=== PATIENT | male | born 1975 | race Caucasian/White ===

== ENCOUNTER 2022-10-16 08:23 | Inpatient (IN) | payer SELFPAY ==
[~2022-10-16] VITALS: Ht 193 cm; Wt 117.0 kg
[2022-10-16] VITALS (715 sets, daily range): BP systolic 121–167; BP diastolic 77–97; PULSE 110–138; TEMP 98.4–99; O2SAT 67–100
[~2022-10-16 08:23] MED LIST: NORCO 325 MG-51 TAB PO; PREDNISONE20 MG PO
[2022-10-16 08:39] LABS: MEAN CELL VOLUME 88 fl (80.0-100.0); MEAN CORPUSCULAR HEMOGLOBIN 28 pg (27-31); MEAN CORPUSCULAR HGB CONC 31 g/dl (33.0-37.0); MEAN PLATELET VOLUME 10.2 fl (7.4-10.4); PLATELET COUNT 532 K/mm3 (130-400); RED BLOOD COUNT 5.43 M/mm3 (4.20-5.60); REDCELL DISTRIBUTION WIDTH-CV 13.8 % (11.5-14.5)
[2022-10-16 08:59] LABS: ALANINE AMINOTRANSFERASE 14 U/L (0-55); ALBUMIN 2.6 gm/dL (3.5-5.0); ALKALINE PHOSPHATASE 133 U/L (40-150); AST,SGOT 13 U/L (5-34); BILIRUBIN,TOTAL 0.3 mg/dL (0.2-1.2); BLOOD UREA NITROGEN 46 mg/dL (9-21); CALCIUM 12.3 mg/dL (8.4-10.2); CHLORIDE 101 mmol/L (98-107); CREATININE, serum 1.72 mg/dL (0.72-1.25); LIPASE 91 U/L (8-78); PHOSPHOROUS 6.3 mg/dL (2.3-4.7); POTASSIUM 5.7 mmol/L (3.5-4.5); SODIUM 127 mmol/L (136-145); TOTAL PROTEIN 8.9 gm/dL (6.2-8.1)
[2022-10-16 09:02] LABS: GLUCOSE 575 mg/dL (70-99)
[2022-10-16 09:03] LABS: CARBON DIOXIDE < 5 mmol/L (22-29)
[2022-10-16 09:05] LABS: TROPONIN-I 0.014 ng/mL (0.00-0.033)
[2022-10-16 09:12] LABS: INR 1.2 (0.8-3.0); PROTHROMBIN TIME 13.5 SECONDS (9.7-12.8)
[2022-10-16 09:14] LABS: PARTIAL THROMBOPLASTIN TIME 30.8 SECONDS (26.0-37.0)
[2022-10-16 09:25] LABS: ARTERIAL BLD GAS O2 SATURATION 97.8 % (92-100); ARTERIAL BLD GAS TCO2 CT 2.9; ARTERIAL BLOOD GAS HCO3 2.6 meq/L (22-26); ARTERIAL BLOOD GAS PO2 117.4 mmHg (80-100)
[2022-10-16 09:26] LABS: ARTERIAL BLOOD GAS PCO2 9.1 mmHg (35-45); ARTERIAL BLOOD GAS pH 7.07 (7.35-7.45)
[2022-10-16 09:41] LABS: LYMPHOCYTE 7 % (20.0-51.0); NEUTROPHILS 67 % (42.0-75.2)
[2022-10-16 09:43] LABS: BAND 21 % (0-10); HYPOCHROMIA 1+; PLATELET ESTIMATE INCREASED (NORMAL)
--- NOTE | 2022-10-16 10:10 | NUR ---
SW briefly reviewed pt's ER record upon admission to ICU this morning. Pt's primary complaint was syncope with hyperventilation. Met with pt's mother, Milagros Dimas in the ICU waiting room and she reports pt fell and injured his knee 2 days ago and he has been physically declining ever since. She reports pt stopped taking his medication for diabetes (Metaformin) 1-2 months ago because he didn't have any medical insurance and he could not afford to pay. 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 Mother reports when presented to the ER today, his BSL was "susan high." Mother stated pt is and he was living with his sister, Zakiya Dave in [place], ph# [phone], prior to his admission. Pt has 4 adult sons who reside in [place], and a brother in [place]. Mother reports she has notified the family of pt's hospitalization. Pt purchases his medications thru [employer] and has seen Dr. Oscar Brito as his primary on occasion, according to his mother. Mother indicated she plans to have pt reside with her once he is clear for discharge. Mother denies pt having a h/o eoth use, but reports that pt occasionally has used [facility] and has a h/o pain medication dependence. Mother reports she will transport pt home @ discharge. No other concerns noted. Will continue to follow.
[2022-10-16 11:05] LABS: BLOOD UREA NITROGEN 49 mg/dL (9-21); CALCIUM 11.4 mg/dL (8.4-10.2); CHLORIDE 107 mmol/L (98-107); CREATININE, serum 1.44 mg/dL (0.72-1.25); POTASSIUM 4.8 mmol/L (3.5-4.5); SODIUM 130 mmol/L (136-145)
[2022-10-16 11:08] LABS: CARBON DIOXIDE < 5 mmol/L (22-29); GLUCOSE 470 mg/dL (70-99)
[2022-10-16 12:52] LABS: COLLECTION METHOD CLEAN CATCH
[2022-10-16 13:00] LABS: MUCOUS Present (NOT PRESENT); SQUAMOUS EPITHELIAL 0-2 /hpf (0-10); URINE BACTERIA Rare /hpf (NONE SEEN); URINE RBC 0-2 /hpf (0-2)
[2022-10-16 13:05] LABS: URINE APPEARANCE Clear (CLEAR/HAZY); URINE COLOR Yellow (YELLOW)
[2022-10-16 13:06] LABS: URINE BLOOD 3+ (NEGATIVE); URINE GLUCOSE 2+ (NEGATIVE); URINE KETONE 4+ (NEGATIVE); URINE NITRATE Negative (NEGATIVE); URINE PROTEIN(semi-quant) 2+ (NEGATIVE); URINE UROBILINOGEN 0.2 E.U/dL (0.2-1.0)
[2022-10-16 13:15] LABS: CALCIUM 9.8 mg/dL (8.4-10.2); CREATININE, serum 0.88 mg/dL (0.72-1.25)
[2022-10-16 15:47] LABS: ARTERIAL BLD GAS O2 SATURATION 97.1 % (92-100); ARTERIAL BLD GAS TCO2 CT 10.4; ARTERIAL BLOOD GAS HCO3 9.8 meq/L (22-26); ARTERIAL BLOOD GAS PO2 87.1 mmHg (80-100); ARTERIAL BLOOD GAS pH 7.31 (7.35-7.45)
[2022-10-16 15:51] LABS: ARTERIAL BLOOD GAS PCO2 19.8 mmHg (35-45)
[2022-10-16 16:20] LABS: CALCIUM 9.9 mg/dL (8.4-10.2); CREATININE, serum 0.76 mg/dL (0.72-1.25); POTASSIUM 3.7 mmol/L (3.5-4.5)
[2022-10-16 17:57] LABS: CALCIUM 9.9 mg/dL (8.4-10.2); CREATININE, serum 0.7 mg/dL (0.72-1.25); POTASSIUM 3.4 mmol/L (3.5-4.5)
[2022-10-16 19:53] LABS: CALCIUM 9.8 mg/dL (8.4-10.2); CREATININE, serum 0.65 mg/dL (0.72-1.25); POTASSIUM 3.6 mmol/L (3.5-4.5)
[2022-10-16 22:20] LABS: CALCIUM 9.7 mg/dL (8.4-10.2); CREATININE, serum 0.59 mg/dL (0.72-1.25); POTASSIUM 3.8 mmol/L (3.5-4.5)
[2022-10-17] VITALS (959 sets, daily range): BP systolic 123–159; BP diastolic 70–89; PULSE 101–126; TEMP 98.6–100.9; O2SAT 86–100
[2022-10-17 00:22] LABS: CALCIUM 9.7 mg/dL (8.4-10.2); CREATININE, serum 0.57 mg/dL (0.72-1.25); POTASSIUM 3.4 mmol/L (3.5-4.5)
[2022-10-17 02:42] LABS: CALCIUM 9.6 mg/dL (8.4-10.2); CREATININE, serum 0.57 mg/dL (0.72-1.25); POTASSIUM 3.2 mmol/L (3.5-4.5)
--- NOTE | 2022-10-17 03:13 | NUR ---
0255: PT HAD URINATED IN HIS SLEEP A VERY LARGE AMOUNT SOAKING PAD AND ALL LINEN. PT RECVD BATH AND LINEN CHANGE AT THIS TIME, NEW GOWN ALSO.
[2022-10-17 04:58] LABS: CALCIUM 9.4 mg/dL (8.4-10.2); CREATININE, serum 0.55 mg/dL (0.72-1.25); POTASSIUM 3.5 mmol/L (3.5-4.5)
[2022-10-17 06:42] LABS: CALCIUM 9.2 mg/dL (8.4-10.2); CREATININE, serum 0.56 mg/dL (0.72-1.25); POTASSIUM 3.3 mmol/L (3.5-4.5)
[2022-10-17 08:18] LABS: MEAN CORPUSCULAR HGB CONC 35 g/dl (33.0-37.0); MEAN PLATELET VOLUME 11.6 fl (7.4-10.4); REDCELL DISTRIBUTION WIDTH-CV 13.5 % (11.5-14.5)
[2022-10-17 08:36] LABS: HEMATOCRIT 33.7 % (42.0-52.0); HEMOGLOBIN 11.8 g/dl (13.5-18.0); MEAN CELL VOLUME 78 fl (80.0-100.0); MEAN CORPUSCULAR HEMOGLOBIN 27 pg (27-31); PLATELET COUNT 257 K/mm3 (130-400)
[2022-10-17 09:19] LABS: BAND 27 % (0-10); LYMPHOCYTE 14 % (20.0-51.0); NEUTROPHILS 53 % (42.0-75.2)
[2022-10-17 09:20] LABS: MAGNESIUM 1.8 mg/dL (1.6-2.6); PLATELET ESTIMATE NORMAL (NORMAL)
[2022-10-17 09:21] LABS: MICROCYTOSIS 1+
[2022-10-17 09:24] LABS: PHOSPHOROUS < 0.7 mg/dL (2.3-4.7)
--- NOTE | 2022-10-17 09:31 | NUR ---
0700 BEDSIDE REPORT RECEIVED FROM BRANDI PORTER. PT RESTING IN BED, VSS. PT IS DROWSY BUT WAKES TO VOICE EASILY, ALERT AND ORIENTED X4. INSULIN AND FLUIDS INFUSING ORDERED, SEE IV FLOW SHEET/MAR. PT DENIES NEEDS AT THIS TIME, CALL LIGHT IN REACH.
--- NOTE | 2022-10-17 11:52 | NUR ---
KRISTIE spoke with pt and his mother, Milagros Dimas at pt's bedside during rounds re: pt's lack of insurance coverage. Mother shared that pt had spent time in the [employer], and received a less than honorable discharge, but asked if pt could qualify for VA Health Benefits. KRISTIE advised mother b/c of pt's "less than honorable" status when he left the [employer], he is not eligible for VA Benefits. Mother verbalized understanding. Mother shared pt had been working at [employer] since May and she indicated pt may have applied for health coverage. When KRISTIE asked pt to confirm if he apply for health care coverage as well as the insurance company he selected. Pt stated he couldn't remember the name of the insurance company and his coverage ( because of late filing) would not be effective until 11-26-2022. Therefore, pt, most likely will have to apply for Medicaid during this admission. A referral to the financial office was sent via email yesterday. No other concerns were noted. Will continue to follow.
[2022-10-17 16:05] LABS: CHOLESTEROL RISK RATIO 7.9
[2022-10-17 18:14] LABS: HEMOGLOBIN 10.6 g/dl (13.5-18.0); MEAN CELL VOLUME 78 fl (80.0-100.0); MEAN CORPUSCULAR HEMOGLOBIN 28 pg (27-31); MEAN CORPUSCULAR HGB CONC 36 g/dl (33.0-37.0); MEAN PLATELET VOLUME 9.9 fl (7.4-10.4); PLATELET COUNT 248 K/mm3 (130-400); RED BLOOD COUNT 3.82 M/mm3 (4.20-5.60); REDCELL DISTRIBUTION WIDTH-CV 13.4 % (11.5-14.5)
[2022-10-17 18:16] LABS: HEMATOCRIT 29.7 % (42.0-52.0)
[2022-10-17 18:34] LABS: CALCIUM 8.7 mg/dL (8.4-10.2); CREATININE, serum 0.49 mg/dL (0.72-1.25); POTASSIUM 3.2 mmol/L (3.5-4.5)
[2022-10-17 19:05] LABS: BAND 30 % (0-10); LYMPHOCYTE 11 % (20.0-51.0); METAMYELOCYTE 2 % (0-0); NEUTROPHILS 55 % (42.0-75.2); PLATELET ESTIMATE NORMAL (NORMAL)
[2022-10-17 19:06] LABS: MICROCYTOSIS 1+
--- NOTE | 2022-10-17 19:19 | NUR ---
1000 PT NOTED TO HAVE TEMP OF 101.2. HOSPITALIST NOTIFIED, TYLENOL ORDER PLACED. 1100 LEVEMIR 30U AND PO TYLENOL GIVEN. 1200 TEMP DOWN TO 99.5. 1300 INSULIN DRIP DISCONTINUED. 1400 PHYSICAL THERAPY ATTEMPTED TO WORK W/ PT. PT IS UNABLE TO BEAR WEIGHT ON L LEG. 1800 PT ENCOURAGED TO EAT SUPPER TRAY, REPORTS POOR APPETITE. PO WATER INTAKE HAS INCREASED. PT STATES HE FEELS BETTER BUT IS STILL VERY DROWSY AND SLEEPS WHEN NOT BEING WOKEN FOR CARE OR TO VOID.
[2022-10-18] VITALS (479 sets, daily range): BP systolic 121–141; BP diastolic 69–97; PULSE 93–105; TEMP 98.2–99.9; O2SAT 88–98
[2022-10-18 05:10] LABS: HEMOGLOBIN 10.6 g/dl (13.5-18.0); MEAN CELL VOLUME 79 fl (80.0-100.0); MEAN CORPUSCULAR HEMOGLOBIN 28 pg (27-31); MEAN CORPUSCULAR HGB CONC 35 g/dl (33.0-37.0); MEAN PLATELET VOLUME 10.3 fl (7.4-10.4); PLATELET COUNT 266 K/mm3 (130-400); RED BLOOD COUNT 3.85 M/mm3 (4.20-5.60); REDCELL DISTRIBUTION WIDTH-CV 13.4 % (11.5-14.5)
[2022-10-18 05:20] LABS: HEMATOCRIT 30.4 % (42.0-52.0)
[2022-10-18 05:34] LABS: CALCIUM 8.8 mg/dL (8.4-10.2); CREATININE, serum 0.51 mg/dL (0.72-1.25)
[2022-10-18 06:02] LABS: BAND 28 % (0-10); LYMPHOCYTE 22 % (20.0-51.0); METAMYELOCYTE 2 % (0-0); MICROCYTOSIS 1+; NEUTROPHILS 44 % (42.0-75.2); PLATELET ESTIMATE NORMAL (NORMAL)
[2022-10-18 08:14] LABS: MAGNESIUM 1.9 mg/dL (1.6-2.6); PHOSPHOROUS 0.8 mg/dL (2.3-4.7)
--- NOTE | 2022-10-18 11:17 | NUR ---
Report called to BRANDI Pope on the 3rd floor. Reviewed drips infusing. All questions answered. Pt transferred to medical bed and transported to room 305. Call light within reach. Notified RN that pt was in room.
[2022-10-18 17:23] LABS: CLOSTRIDIUM DIFF A/B NEG
[2022-10-19 03:10] VITALS: BP 121/74; PULSE 93; TEMP 98.6
--- NOTE | 2022-10-19 05:01 | NUR ---
A/O VSS, IV antibiotics continue, BS stable, Toe dressing stable, continues to complain of left knee pain. bed in low locked position, call light within reach.
[2022-10-19 07:00] LABS: HEMATOCRIT 27.2 % (42.0-52.0); HEMOGLOBIN 9.5 g/dl (13.5-18.0); MEAN CELL VOLUME 79 fl (80.0-100.0); MEAN CORPUSCULAR HEMOGLOBIN 28 pg (27-31); MEAN CORPUSCULAR HGB CONC 35 g/dl (33.0-37.0); MEAN PLATELET VOLUME 10.1 fl (7.4-10.4); PLATELET COUNT 235 K/mm3 (130-400); RED BLOOD COUNT 3.44 M/mm3 (4.20-5.60); REDCELL DISTRIBUTION WIDTH-CV 13.7 % (11.5-14.5)
[2022-10-19 07:05] LABS: CALCIUM 8.1 mg/dL (8.4-10.2); CREATININE, serum 0.43 mg/dL (0.72-1.25); PHOSPHOROUS 2.5 mg/dL (2.3-4.7)
[2022-10-19 07:12] VITALS: BP 126/76; PULSE 89; TEMP 98.4
[2022-10-19 07:41] LABS: POTASSIUM 2.8 mmol/L (3.5-4.5)
[2022-10-19 07:46] LABS: EOSINOPHIL 1 % (0-4); LYMPHOCYTE 14 % (20.0-51.0); NEUTROPHILS 56 % (42.0-75.2)
[2022-10-19 07:47] LABS: MICROCYTOSIS 1+; PLATELET ESTIMATE NORMAL (NORMAL)
[2022-10-19 07:49] LABS: BAND 24 % (0-10)
[2022-10-19 11:06] VITALS: BP 132/86; PULSE 98; TEMP 98.3
[2022-10-19 16:11] VITALS: BP 120/78; PULSE 92; TEMP 97.8
[2022-10-19 19:30] VITALS: BP 128/65; PULSE 98; TEMP 98.2
[2022-10-19 23:05] VITALS: BP 147/82; PULSE 90; TEMP 98.9
[2022-10-20 03:04] VITALS: BP 144/63; PULSE 90; TEMP 98.2
[2022-10-20 03:28] LABS: MEAN CELL VOLUME 79 fl (80.0-100.0); MEAN CORPUSCULAR HGB CONC 34 g/dl (33.0-37.0); MEAN PLATELET VOLUME 9.7 fl (7.4-10.4); PLATELET COUNT 250 K/mm3 (130-400); RED BLOOD COUNT 3.55 M/mm3 (4.20-5.60); REDCELL DISTRIBUTION WIDTH-CV 13.7 % (11.5-14.5)
[2022-10-20 03:30] LABS: HEMOGLOBIN 9.6 g/dl (13.5-18.0); MEAN CORPUSCULAR HEMOGLOBIN 27 pg (27-31)
[2022-10-20 03:47] LABS: CALCIUM 8.2 mg/dL (8.4-10.2); CREATININE, serum 0.48 mg/dL (0.72-1.25); POTASSIUM 3.1 mmol/L (3.5-4.5)
[2022-10-20 03:53] LABS: BAND 7 % (0-10); EOSINOPHIL 1 % (0-4); LYMPHOCYTE 11 % (20.0-51.0); NEUTROPHILS 75 % (42.0-75.2); PLATELET ESTIMATE NORMAL (NORMAL)
[2022-10-20 03:54] LABS: MICROCYTOSIS 1+
--- NOTE | 2022-10-20 06:24 | NUR ---
A/O VSS, PLANNING FOR MRI OF RIGHT KNEE, IV ANTIBIOTICS CONTINUE, BS UP AT HS LAST NIGHT, DIET DISCUSSED, BED IN LOW LOCKED POSITION, CALL LIGHT WITHIN REACH, INSTRUCTED TO CALL FOR ASSISTANCE IF NEED
[2022-10-20 08:00] VITALS: BP 133/74; PULSE 96; TEMP 99.2
[2022-10-20 13:09] VITALS: BP 126/69; PULSE 107; TEMP 98.4
[2022-10-20 16:00] VITALS: BP 140/89; PULSE 95; TEMP 98.5
[2022-10-20 19:06] VITALS: BP 130/67; PULSE 98; TEMP 98.6
--- NOTE | 2022-10-20 20:30 | NUR ---
Initial shift assessment done- VSS, edema to left lower leg, knee especially- states knee pain is 'OK' now , was given pain med at shift change, Voiding sultana colored urine per urinal, no requests, given a HS snack tonight- states he ready to get some sleep- PICC to LAURIE
[2022-10-20 23:21] VITALS: BP 130/69; PULSE 93; TEMP 98.5
[2022-10-21 03:07] VITALS: BP 124/67; PULSE 94; TEMP 99
--- NOTE | 2022-10-21 06:05 | NUR ---
Quiet night, [place] given around 0230 for left knee pain 08/05,, did bring the pain to 03/07,, ice applied to left knee, VSS, highest temp 99.0
[2022-10-21 07:26] VITALS: BP 128/70; PULSE 89; TEMP 98.8
[2022-10-21 08:43] LABS: HEMOGLOBIN 10.2 g/dl (13.5-18.0); MEAN CELL VOLUME 80 fl (80.0-100.0); MEAN CORPUSCULAR HEMOGLOBIN 28 pg (27-31); MEAN CORPUSCULAR HGB CONC 35 g/dl (33.0-37.0); MEAN PLATELET VOLUME 10.4 fl (7.4-10.4); PLATELET COUNT 321 K/mm3 (130-400); RED BLOOD COUNT 3.67 M/mm3 (4.20-5.60); REDCELL DISTRIBUTION WIDTH-CV 14.4 % (11.5-14.5)
[2022-10-21 08:49] LABS: HEMATOCRIT 29.4 % (42.0-52.0)
[2022-10-21 09:36] LABS: ERYTHROCYTE SEDIMENTATION RATE > 140 mm/hr (0-15)
--- NOTE | 2022-10-21 10:26 | NUR ---
Patient is resting in bed, left leg over a pillow with ice on it. States his pain is 2/10 but ask for some pain med before PT. Alert and oriented, medications provided. No further needs at this time. Call light within reach.
[2022-10-21 11:13] VITALS: BP 133/74; PULSE 93; TEMP 98.7
[2022-10-21 15:06] VITALS: BP 132/76; PULSE 88; TEMP 98.4
[2022-10-21 19:08] VITALS: BP 128/74; PULSE 96; TEMP 98.3
--- NOTE | 2022-10-21 20:30 | NUR ---
Initial shift assessment done- states ready for pain pill for left knee pain 07/05- will give [place] as ordered, Ice to left knee, continues with edema to left leg but is improved from last night,,VSS
[2022-10-21 23:29] VITALS: BP 123/74; PULSE 86; TEMP 98.2
[2022-10-22 03:11] VITALS: BP 131/75; PULSE 86; TEMP 98.1
--- NOTE | 2022-10-22 05:54 | NUR ---
Quiet night, states slept good last night- afebrile.
[2022-10-22 07:22] VITALS: BP 129/70; PULSE 84; TEMP 98.6
--- NOTE | 2022-10-22 08:00 | NUR ---
Patient is resting in bed, alert and oriented x 4, states feeling better. Pepe wrap on LLE. Pain med provided to work with PT. Assessment completed, no further needs at this time. Call light within reach.
[2022-10-22 11:14] VITALS: BP 125/82; PULSE 86; TEMP 97.8
[2022-10-22 15:08] VITALS: BP 128/68; PULSE 90; TEMP 98.4
[2022-10-22 20:08] VITALS: BP 125/69; PULSE 89; TEMP 98.2
[2022-10-22 23:28] VITALS: BP 116/71; PULSE 81; TEMP 98.8
[2022-10-23 03:08] VITALS: BP 122/83; PULSE 76; TEMP 99.1
--- NOTE | 2022-10-23 05:25 | NUR ---
ASSESSMENT COMPLETE FOR CHIEF CRNA. PT HAD A PRETTY UNEVENTFUL NIGHT. PT FELT HIS PAIN WAS PRETTY WELL MANAGED WITH HIS SCHEDULED TYLENOL & MOTRIN. PT DENIED CHEST PAIN, PALPITATIONS, N,V,D, SOB OR DIZZINESS. PT EXPRESSED NO ADDITONAL NEEDS OR CONCERNS AT THIS TIME. CALL LIGHT WITHIN REACH.
[2022-10-23 07:24] VITALS: BP 130/68; PULSE 75; TEMP 98.5
--- NOTE | 2022-10-23 09:42 | NUR ---
Assessment completed this am. Pt a/o and very pleasant. Reports pain to left knee- scheduled Motrin administered. +2 edema to LLE. Fall precautions in place.
[2022-10-23] MEDS ORDERED: ADVIL200 MG PO (09:56)
[2022-10-23] MEDS ORDERED: TYLENOL 325MG325 MG PO (09:57)
[2022-10-23] MEDS ORDERED: PREDNISONE20 MG PO (09:58)
[2022-10-23] MEDS ORDERED: PROTONIX 40MG T40 MG PO (09:58)
[2022-10-23] MEDS ORDERED: GLUCOPHAGE500 MG/TAB PO (09:58)
--- NOTE | 2022-10-23 11:22 | NUR ---
Discharge orders rec'd. Notified [facility] for PICC removal.
[2022-10-23 12:08] VITALS: BP 132/74; PULSE 83; TEMP 98.1
--- NOTE | 2022-10-23 13:20 | NUR ---
Discharge instructions reviewed with patient- verbalizes understanding. Ayesha with [facility] d/c'd PICC line and patient remained flat for 30 minutes. Pt escorted via w/c by [facility] staff to private vehicle and discharged to home with father.
== END 2022-10-23 13:20 | disposition home or self-care (01) | DRG 638 ==
LOC: COL.ER 08:23 → ICU 08:49 → MEDICAL 10-18 11:56
PROVIDERS: Emergency Medicine; Internal Medicine; Internal Medicine Gastroenterology; Internal Medicine Pulmonary Disease; ADMIT Internal Medicine
DX: E11.10 Type 2 diabetes mellitus with ketoacidosis without coma (principal); R65.10 Systemic inflammatory response syndrome (SIRS) of non-infectious origin without acute organ dysfunction; Z79.4 Long term (current) use of insulin; E11.9 Type 2 diabetes mellitus without complications; L03.031 Cellulitis of right toe; D64.9 Anemia, unspecified; E66.9 Obesity, unspecified; Z68.30 Body mass index [BMI] 30.0-30.9, adult; M25.461 Effusion, right knee
CPT/HCPCS: C1751; C9113; J1650; J1815; J1885; J2543; J2920; J3370; J3475; J3480; J7030; J7050; J7120; Q3014; Q9967

== ENCOUNTER 2023-01-25 09:00 | Outpatient (RCR) | payer SELFPAY ==
[2022-12-28 08:23] VITALS: BP 94/64; PULSE 99; TEMP 97.9
[2022-12-29 08:21] VITALS: BP 106/70; PULSE 104; TEMP 98.3
[2022-12-30 09:50] VITALS: BP 118/81; PULSE 102; TEMP 98.2
[2022-12-31 09:04] VITALS: BP 104/69; PULSE 102; TEMP 98.1
[2023-01-01 09:13] VITALS: BP 107/82; PULSE 114; TEMP 98.1
[2023-01-01 09:26] LABS: BASO % 0.5 % (0.0-2.0); EOS # 0.1 K/mm3 (0.0-0.7); GRAN # 5.4 K/mm3 (1.4-6.5); GRAN % 69.2 % (42.2-75.2); HEMATOCRIT 34.8 % (42.0-52.0); HEMOGLOBIN 10.7 g/dl (13.5-18.0); LYMPH # 1.8 K/mm3 (1.2-3.4); LYMPH % 22.9 % (20.0-51.0); MEAN CELL VOLUME 79 fl (80.0-100.0); MEAN CORPUSCULAR HEMOGLOBIN 24 pg (27-31); MEAN CORPUSCULAR HGB CONC 31 g/dl (33.0-37.0); MEAN PLATELET VOLUME 9.4 fl (7.4-10.4); MONO # 0.5 K/mm3 (0.1-0.6); MONO % 6.1 % (1.7-9.3); PLATELET COUNT 635 K/mm3 (130-400); RED BLOOD COUNT 4.43 M/mm3 (4.20-5.60); REDCELL DISTRIBUTION WIDTH-CV 15.9 % (11.5-14.5)
[2023-01-01 09:44] LABS: BILIRUBIN,TOTAL 0.2 mg/dL (0.2-1.2); C-REACTIVE PROTEIN 5.88 mg/dL (0.00-0.50); CALCIUM 9.8 mg/dL (8.4-10.2); CREATININE, serum 0.79 mg/dL (0.72-1.25); POTASSIUM 3.9 mmol/L (3.5-4.5); TOTAL PROTEIN 8.2 gm/dL (6.2-8.1)
[2023-01-02 09:28] VITALS: BP 106/70; PULSE 103; TEMP 98.2
[2023-01-03 09:03] VITALS: BP 106/71; PULSE 118; TEMP 98.2
[2023-01-04 09:27] VITALS: BP 118/83; PULSE 120; TEMP 98.3
[2023-01-05 07:41] VITALS: BP 114/76; PULSE 100; TEMP 98.3
[2023-01-06 08:59] VITALS: BP 119/83; PULSE 108; TEMP 98
[2023-01-07 08:40] VITALS: BP 131/86; PULSE 118; TEMP 98.5
[2023-01-08 09:18] LABS: BASO % 0.6 % (0.0-2.0); EOS # 0.1 K/mm3 (0.0-0.7); EOS % 1.8 % (0.0-4.0); GRAN # 4.3 K/mm3 (1.4-6.5); GRAN % 64.1 % (42.2-75.2); HEMOGLOBIN 10.2 g/dl (13.5-18.0); LYMPH # 1.8 K/mm3 (1.2-3.4); MEAN CELL VOLUME 78 fl (80.0-100.0); MEAN CORPUSCULAR HEMOGLOBIN 24 pg (27-31); MEAN CORPUSCULAR HGB CONC 31 g/dl (33.0-37.0); MONO # 0.4 K/mm3 (0.1-0.6); PLATELET COUNT 555 K/mm3 (130-400); RED BLOOD COUNT 4.23 M/mm3 (4.20-5.60); REDCELL DISTRIBUTION WIDTH-CV 16.2 % (11.5-14.5)
[2023-01-08 09:21] VITALS: BP 111/81; PULSE 114; TEMP 98.3
[2023-01-08 09:21] LABS: HEMATOCRIT 33.1 % (42.0-52.0)
[2023-01-08 09:38] LABS: ALBUMIN 3.2 gm/dL (3.5-5.0); BILIRUBIN,TOTAL 0.2 mg/dL (0.2-1.2); C-REACTIVE PROTEIN 3.99 mg/dL (0.00-0.50); CALCIUM 9.6 mg/dL (8.4-10.2); CREATININE, serum 0.85 mg/dL (0.72-1.25); TOTAL PROTEIN 8.1 gm/dL (6.2-8.1)
[2023-01-08 10:13] LABS: ERYTHROCYTE SEDIMENTATION RATE 83 mm/hr (0-15)
[2023-01-09 09:22] VITALS: BP 113/71; PULSE 110; TEMP 98
[2023-01-10 09:22] VITALS: BP 119/79; PULSE 106; TEMP 98.6
[2023-01-11 09:04] VITALS: BP 107/77; PULSE 113; TEMP 98.2
[2023-01-12 09:04] VITALS: BP 101/68; PULSE 119; TEMP 98.5
[2023-01-13 09:13] VITALS: BP 127/79; PULSE 107; TEMP 98.1
[2023-01-14 08:56] VITALS: BP 102/70; PULSE 99; TEMP 98.5
--- NOTE | 2023-01-14 09:10 | NUR ---
Pt tolerated med without issue. Both lumens of PICC flushed, and given brisk blood return. Pt assisted to ED entrance following cares and is able to ambulate with walker from [facility] area to step father's car with walker.
[2023-01-15 09:14] VITALS: BP 123/86; PULSE 114; TEMP 98.8
--- NOTE | 2023-01-15 09:30 | NUR ---
Patient transfered by wheelchair to awaiting vehicle by nursing staff. A&Ox4. PICC line CDI. No further needs expressed
[2023-01-15 09:32] LABS: BASO % 0.5 % (0.0-2.0); EOS # 0.2 K/mm3 (0.0-0.7); EOS % 2.5 % (0.0-4.0); GRAN # 4.7 K/mm3 (1.4-6.5); GRAN % 62.5 % (42.2-75.2); HEMOGLOBIN 10.7 g/dl (13.5-18.0); LYMPH # 2.1 K/mm3 (1.2-3.4); MEAN CELL VOLUME 78 fl (80.0-100.0); MEAN CORPUSCULAR HEMOGLOBIN 24 pg (27-31); MEAN CORPUSCULAR HGB CONC 30 g/dl (33.0-37.0); MEAN PLATELET VOLUME 9.3 fl (7.4-10.4); MONO # 0.5 K/mm3 (0.1-0.6); MONO % 6.2 % (1.7-9.3); PLATELET COUNT 548 K/mm3 (130-400); RED BLOOD COUNT 4.54 M/mm3 (4.20-5.60); REDCELL DISTRIBUTION WIDTH-CV 16.5 % (11.5-14.5)
[2023-01-15 09:35] LABS: HEMATOCRIT 35.5 % (42.0-52.0)
[2023-01-15 09:41] LABS: ALBUMIN 3.5 gm/dL (3.5-5.0); BILIRUBIN,TOTAL 0.2 mg/dL (0.2-1.2); C-REACTIVE PROTEIN 1.96 mg/dL (0.00-0.50); CREATININE, serum 0.81 mg/dL (0.72-1.25); POTASSIUM 4.5 mmol/L (3.5-4.5); TOTAL PROTEIN 8.3 gm/dL (6.2-8.1)
[2023-01-16 08:58] VITALS: BP 127/80; PULSE 105; TEMP 98.2
[2023-01-17 09:02] VITALS: BP 116/74; PULSE 100; TEMP 98.1
[2023-01-18 09:17] VITALS: BP 123/81; PULSE 116; TEMP 98.5
[2023-01-19 09:15] VITALS: BP 105/75; PULSE 113; TEMP 98.6
[2023-01-20 09:01] VITALS: BP 118/79; PULSE 108; TEMP 98.5
[2023-01-21 09:06] VITALS: BP 114/81; PULSE 95; TEMP 98.6
[2023-01-22 09:23] LABS: BASO % 0.5 % (0.0-2.0); EOS # 0.2 K/mm3 (0.0-0.7); EOS % 2.8 % (0.0-4.0); GRAN # 3.5 K/mm3 (1.4-6.5); HEMOGLOBIN 10.8 g/dl (13.5-18.0); LYMPH # 2.3 K/mm3 (1.2-3.4); LYMPH % 35.9 % (20.0-51.0); MEAN CELL VOLUME 79 fl (80.0-100.0); MEAN CORPUSCULAR HEMOGLOBIN 25 pg (27-31); MEAN CORPUSCULAR HGB CONC 31 g/dl (33.0-37.0); MEAN PLATELET VOLUME 9.2 fl (7.4-10.4); MONO # 0.4 K/mm3 (0.1-0.6); MONO % 6.6 % (1.7-9.3); PLATELET COUNT 445 K/mm3 (130-400); RED BLOOD COUNT 4.41 M/mm3 (4.20-5.60); REDCELL DISTRIBUTION WIDTH-CV 16.9 % (11.5-14.5)
[2023-01-22 09:24] LABS: HEMATOCRIT 34.7 % (42.0-52.0)
[2023-01-22 09:25] VITALS: BP 132/78; PULSE 97; TEMP 98.5
[2023-01-22 09:39] LABS: ALBUMIN 3.5 gm/dL (3.5-5.0); BILIRUBIN,TOTAL 0.2 mg/dL (0.2-1.2); C-REACTIVE PROTEIN 0.69 mg/dL (0.00-0.50); CALCIUM 9.3 mg/dL (8.4-10.2); CREATININE, serum 0.76 mg/dL (0.72-1.25); POTASSIUM 4.2 mmol/L (3.5-4.5); TOTAL PROTEIN 7.8 gm/dL (6.2-8.1)
[2023-01-23 09:05] VITALS: BP 137/91; PULSE 103; TEMP 98.3
[2023-01-24 09:15] VITALS: BP 120/86; PULSE 92; TEMP 98.2
[~2023-01-25] VITALS: Ht 193 cm; Wt 110.6 kg
[2023-01-25 08:52] VITALS: BP 121/86; PULSE 89; TEMP 98.3
[~2023-01-25 09:00] MED LIST changes: +ADVIL200 MG PO; +COLACE 100100 MG/CAP PO; +CUBICIN 500MG500 MG IV; +DOXYCYCLINE 10100 MG PO; +ELIQUIS 2.5 PO; +GLUCOPHAGE500 MG/TAB PO; +IRON TABLETS325 MG PO; +MOTRIN 200200 MG/TAB PO; +MULTIPLE VITAMI1 CAP PO; +PROTONIX 40MG T40 MG PO; +ROCEPHIN 2GM VIAL21 IV; +ROXICODONE 55 MG/TAB PO; +TYLENOL 325MG325 MG PO; +VITAMIN B12 781 TAB; +VITAMIN C500 MG PO; +VOLTAREN GEL 1%1 TU TP; +ZYVOX 600MG600 MG PO
[2023-01-26] MEDS ORDERED: VOLTAREN GEL 1%1 TU TP (09:10)
== END 2023-01-25 11:31 | disposition home or self-care (01) ==
LOC: EUO 09:00
PROVIDERS: Internal Medicine
DX: M86.172 Other acute osteomyelitis, left ankle and foot (principal); M00.862 Arthritis due to other bacteria, left knee
CPT/HCPCS: J0696; J0878

== ENCOUNTER 2023-01-29 09:00 | Outpatient (RCR) | payer SELFPAY ==
[2023-01-26 09:06] VITALS: BP 122/85; PULSE 100; TEMP 98.2
[2023-01-27 08:57] VITALS: BP 122/79; PULSE 110; TEMP 98.2
[~2023-01-29] VITALS: Ht 193 cm; Wt 110.6 kg
[2023-01-29 09:06] VITALS: BP 122/79; PULSE 92; TEMP 98.1
--- NOTE | 2023-01-29 09:34 | NUR ---
Pt remained supine for 30 mins post PICC DC. Dressing remains clean, dry and intact. He is free of complaints. He transfers self from bed to wheelchair and is assisted out to meet stepfather for ride home.
== END 2023-01-29 09:35 | disposition home or self-care (01) ==
LOC: EUO 09:00
DX: M00.862 Arthritis due to other bacteria, left knee (principal); M86.162 Other acute osteomyelitis, left tibia and fibula; M86.152 Other acute osteomyelitis, left femur
CPT/HCPCS: J0696

== ENCOUNTER 2023-02-06 13:54 | Outpatient (RCR) | payer SELFPAY | END 2023-02-25 | LOC: WSPT | DX: M86.162 Other acute osteomyelitis, left tibia and fibula (principal) ==

== ENCOUNTER → 2023-03-15 | Outpatient (CLI) | payer SELFPAY ==
[2023-03-15 11:47] LABS: BASO % 0.1 % (0.0-2.0); EOS # 0.1 K/mm3 (0.0-0.7); EOS % 1.4 % (0.0-4.0); GRAN # 3.8 K/mm3 (1.4-6.5); GRAN % 53.4 % (42.2-75.2); HEMATOCRIT 42.2 % (42.0-52.0); HEMOGLOBIN 13.5 g/dl (13.5-18.0); LYMPH # 2.7 K/mm3 (1.2-3.4); LYMPH % 37.7 % (20.0-51.0); MEAN CELL VOLUME 80 fl (80.0-100.0); MEAN CORPUSCULAR HEMOGLOBIN 26 pg (27-31); MEAN CORPUSCULAR HGB CONC 32 g/dl (33.0-37.0); MEAN PLATELET VOLUME 9.5 fl (7.4-10.4); MONO # 0.5 K/mm3 (0.1-0.6); MONO % 7.1 % (1.7-9.3); PLATELET COUNT 331 K/mm3 (130-400); REDCELL DISTRIBUTION WIDTH-CV 16.7 % (11.5-14.5)
== END ==
LOC: COL.LAB 11:04
PROVIDERS: Physician Assistant
DX: Z87.39 Personal history of other diseases of the musculoskeletal system and connective tissue (principal)